=== PATIENT | female | born 1955 | race Caucasian/White ===

== ENCOUNTER 2019-06-17 12:10 | Inpatient (IN) | payer OTHER ==
[~2019-06-17] VITALS: Ht 154.9 cm; Wt 36.7 kg
[~2019-06-17 12:10] MED LIST: ALLEGRA180 MG PO; ATROVENT15 ML; BUDEPRION SR150 MG PO; BUPROPION XL300 MG PO; BUSPIRONE HCL10 MG PO; CALCIUM 600 +1 EA11 PO; CALCIUM 600 +1 EAC5 PO; CLONAZEPAM 1 MG1 M1 PO; COMBIVENT INH; DULERA 200 MCG/13 GM INH; DUONEB 2.5-0.5 M3 ML IH; EVISTA PO; FLONASE 0.05%50 MCG NASAL; KEFLEX500 MG PO; LEVAQUIN 500 M500 M2 PO; LEVAQUIN 500 M500 MG PO; MEDROL4 MG PO; MUCINEX600 MG PO; MULTIVITAMINS PO; MULTIVITAMINS1 EAC7 PO; NORCO 5-325 TA1 EACH PO; NORVASC10 MG PO; PEPCID40 MG PO; PRAVACHOL40 MG PO; PREDNISONE 10 M10 M1; PREDNISONE 10 M10 M1 PO; PREDNISONE 10 M10 MG PO; PRELONE15 MG/5 M1 PO; PROMETHAZINE/C118 ML PO; SINGULAIR 10 MG10 M1; SINGULAIR 10 MG10 M1 PO; SINGULAIR 10 MG10 MG PO; SPIRIVA INH; SYMBICORT160 MCG/4. INH; See comments; XANAX 0.5 MG0.5 M1 PO; XANAX 0.5 MG0.5 MG PO; ZANTAC 150MG T150 M1 PO; ZPAK PO; [UNRECOGNIZED DRUG - OTHER] PO
[2019-06-17 12:11] VITALS: BP 112/73
[2019-06-17 12:39] LABS: HEMATOCRIT 36.7 % (37.0-47.0); HEMOGLOBIN 12.4 gm/dL (12.0-15.0); MCH 29.9 pg (26.0-34.0); MCHC 33.7 g/dL (28.0-37.0); MCV 88.7 fL (80.0-100.0); NUCLEATED RBCS 0 /100WBC; PLATELET COUNT* 379 thou/uL (150-400); RBC 4.14 mil/uL (4.20-5.00); RDW-CV 12.5 % (10.5-14.5); WBC 22.3 thou/uL (4.0-11.0)
[2019-06-17 12:47] LABS: CALCIUM 9.6 mg/dL (8.5-10.1); CREATININE 1.2 mg/dL (0.6-1.3); POTASSIUM 4.3 mmol/L (3.5-5.1)
[2019-06-17 12:48] LABS: APTT 34.4 Seconds (25.0-31.3)
[2019-06-17 12:57] LABS: ALBUMIN 3.2 g/dL (3.4-5.0); TOTAL BILIRUBIN 0.4 mg/dL (<0.1-1.0); TOTAL PROTEIN 7.5 g/dL (6.4-8.2)
[2019-06-17] MEDS ORDERED: PROAIR HFA8.5 GM INH (13:03)
[2019-06-17] MEDS ORDERED: DALIRESP500 MCG PO (13:04)
[2019-06-17] MEDS ORDERED: EVISTA60 MG PO (13:04)
[2019-06-17 13:25] LABS: ABSOLUTE LYMPHOCYTES 0.4 thou/uL (0.8-5.3); ABSOLUTE MONOCYTES 0.2 thou/uL (0.0-1.2); ABSOLUTE NEUTROPHILS 21.6 thou/uL (1.6-8.1); PLATELET ESTIMATE ADEQUATE
[2019-06-17 14:39] VITALS: BP 125/80
[2019-06-17] MEDS ORDERED: CLONAZEPAM 1 MG1 M1 PO (16:02)
[2019-06-17] MEDS ORDERED: CLONAZEPAM2 MG PO (16:03)
[2019-06-17] MEDS ORDERED: ALBUTEROL2.5 MG/31 INH (16:07)
--- NOTE | 2019-06-17 16:11 | EKG ---
[place] [address] ELECTROCARDIOGRAM REPORT Name: SILVIANO COBURN Room: [address] ADM IN M.R.#: [id number] Admission: 06/17/19 Attend Phys: Helene Wiley MD Discharge: Date of : 51 Report #: [id number] THIS REPORT FOR: //name// [facility] ED Test Date: 2019-06-17 Test Time: 12:24:35 Pat Name: SILVIANO COBURN Department: Room: [facility] Gender: F Hooker On: : 1955 Requested By: Gt Vidales Order Number: [id number] MD: Osito Montanez Measurements Intervals [place] Rate: 133 P: 103 RI: 158 QRS: 83 QRSD: 76 T: 26 QT: 282 QTc: 420 Interpretive Statements Sinus tachycardia Consider right atrial enlargement Probable septal infarct, old Artifact in lead(s) I,V4,V5 Compared to ECG 04/26/2013 09:38:27 Myocardial infarct finding now present Sinus rhythm no longer present Electronically Signed On 06-17-2019 16:11:28 EMERGENCY PHYSICIAN by Osito Montanez [email or web address] <ELECTRONICALLY SIGNED> By: Osito Montanez MD, FACC 06/17/19 1611 1224 1224 Osito Montanez MD, [facility] /EPI
[2019-06-17 17:04] VITALS: BP 124/55
--- NOTE | 2019-06-17 17:26 | NUR ---
PT ARRIVED FROM ER AROUND 1500. ASSESSMENT COMPLETED CHARTED. ABLE TO MAKE NEEDS KNOWN. C/O SLIGHT PAIN IN RIBS, GETS WORSE WITH COUGHING. UP WITH ASSIST. RESTING IN BED. IV FLUIDS AND IV ABT RUNNING PER EMAR. FAMILY AT BEDSIDE. WILL CONTINUE TO MONITOR.
[2019-06-17 20:00] VITALS: BP 139/66
[2019-06-18 00:21] VITALS: BP 99/49
[2019-06-18 04:00] VITALS: BP 105/60
[2019-06-18 08:00] VITALS: BP 123/66
[2019-06-18 11:44] VITALS: BP 115/58
--- NOTE | 2019-06-18 12:14 | NUR ---
Nutrition: Pt admitted with COPD exac. H/o COPD, dysphagia, HTN. Consult for poor appetite. Wt: 79#. REgular diet ordered. BG 135, albumin 3.2. Uses O2 at home. BMI 15. Underweight R/T COPD demands AEB BMI 15, COPD DX. Ensure Enlive ordered. Encourae good protein/meal intake. Mild risk at this time.
--- NOTE | 2019-06-18 12:27 | NUR ---
Pt is A&O. Resides at home with her dtr. Independent. Pt states that she keeps a walker in her car for community distances. Pt wears home o2 continuous at 2L and has a trilogy through [employer]. Pt also has an [employer]. No hx of HH or SNF. Goal is home at dc, no needs anticipated, Pt states that her dtr is available to assist if needed. Following
[2019-06-18 12:40] LABS: INFLUENZA A ANTIGEN Negative (Negative); INFLUENZA B ANTIGEN Negative (Negative)
[2019-06-18 17:07] VITALS: BP 113/69
[2019-06-18 17:31] LABS: HEMATOCRIT 26.1 % (37.0-47.0); MCH 29.2 pg (26.0-34.0); MCHC 33.1 g/dL (28.0-37.0); MCV 88.3 fL (80.0-100.0); MPV 8.3 fl. (7.2-11.1); RBC 2.96 mil/uL (4.20-5.00); RDW-CV 12.4 % (10.5-14.5); WBC 17.4 thou/uL (4.0-11.0)
[2019-06-18 17:42] LABS: HEMOGLOBIN 8.6 gm/dL (12.0-15.0)
--- NOTE | 2019-06-18 18:56 | NUR ---
PT VSS, PATIENT SR TO ST ON TELE, A&OX4, NC@3L BASELINE, NPO AT MIDNIGHT EGD 11AM TOMORROW, PATIENT UP WITH ONE AND WALKER, HOURLY ROUNDING PERFORMED, POSSESSIONS AND CALL LIGHT WITHIN REACH. IV INFILTRATED IN LEFT ARM, ICE APPLIED AND ELEVATED
[2019-06-18 22:00] VITALS: BP 110/61
[2019-06-19 00:34] VITALS: BP 121/71
[2019-06-19 04:00] VITALS: BP 111/69
[2019-06-19 05:47] LABS: HEMATOCRIT 25.6 % (37.0-47.0); HEMOGLOBIN 8.5 gm/dL (12.0-15.0); MCHC 33.1 g/dL (28.0-37.0); MCV 87.7 fL (80.0-100.0); MPV 8.2 fl. (7.2-11.1); PLATELET COUNT* 381 thou/uL (150-400); RBC 2.91 mil/uL (4.20-5.00); RDW-CV 12.7 % (10.5-14.5); WBC 14.5 thou/uL (4.0-11.0)
[2019-06-19 06:01] LABS: ALBUMIN 2.4 g/dL (3.4-5.0); CALCIUM 8.6 mg/dL (8.5-10.1); CREATININE 0.7 mg/dL (0.6-1.3); MAGNESIUM 2.1 mg/dL (1.8-2.4); POTASSIUM 3.9 mmol/L (3.5-5.1); TOTAL BILIRUBIN 0.1 mg/dL (<0.1-1.0); TOTAL PROTEIN 5.8 g/dL (6.4-8.2)
[2019-06-19 08:00] VITALS: BP 145/82
[2019-06-19 11:39] VITALS: BP 132/74
[2019-06-19 13:01] LABS: ABSOLUTE LYMPHOCYTES 0.4 thou/uL (0.8-5.3); ABSOLUTE MONOCYTES 0.3 thou/uL (0.0-1.2); ABSOLUTE NEUTROPHILS 13.8 thou/uL (1.6-8.1); BASOPHILS 0.2 %; LYMPHOCYTES 2.5 %; MONOCYTES 2.1 %; POLYS 95.2 %
[2019-06-19 16:24] VITALS: BP 122/60
--- NOTE | 2019-06-19 19:55 | NUR ---
ASSUMED PT CARE AT 0730. ASSESSMENT COMPLETED CHARTED. ABLE TO MAKE NEEDS KNOWN. NO C/O PAIN OR DISCOMFORT. UP WITH SBA WITH WALKER. DIARRHEA NOTED, NOTIFIED DR, NEW ORDERS RECIEVED. RESTING IN BED AT THIS TIME WITH 2L O2 ON. IV ABT. ST ON MONITOR. WILL CONTINUE TO MONITOR.
[2019-06-19 21:00] VITALS: BP 125/71
[2019-06-20] VITALS: BP 96/54
[2019-06-20 04:00] VITALS: BP 100/50
[2019-06-20 08:00] VITALS: BP 122/64
[2019-06-20 12:08] LABS: HEMATOCRIT 25.7 % (37.0-47.0); HEMOGLOBIN 8.6 gm/dL (12.0-15.0); MCH 29.7 pg (26.0-34.0); MCHC 33.4 g/dL (28.0-37.0); MCV 88.8 fL (80.0-100.0); MPV 7.8 fl. (7.2-11.1); NUCLEATED RBCS 0 /100WBC; PLATELET COUNT* 384 thou/uL (150-400); RDW-CV 12.9 % (10.5-14.5); WBC 8.6 thou/uL (4.0-11.0)
[2019-06-20 12:11] LABS: ALBUMIN 2.5 g/dL (3.4-5.0); CALCIUM 8.4 mg/dL (8.5-10.1); CREATININE 0.7 mg/dL (0.6-1.3); TOTAL BILIRUBIN 0.2 mg/dL (<0.1-1.0)
[2019-06-20 12:16] VITALS: BP 148/63
[2019-06-20 12:31] LABS: ABSOLUTE LYMPHOCYTES 0.5 thou/uL (0.8-5.3); ABSOLUTE MONOCYTES 0.1 thou/uL (0.0-1.2); PLATELET ESTIMATE ADEQUATE
[2019-06-20 16:38] VITALS: BP 159/85
[2019-06-20 20:30] VITALS: BP 150/74
[2019-06-21] VITALS: BP 135/58
[2019-06-21 04:00] VITALS: BP 133/66
--- NOTE | 2019-06-21 05:18 | NUR ---
PT SLEPT MOST OF SHIFT. ASSESSMENT DOCUMENTED. MEDS GIVEN PER E-MAR. IV PATENT. TYLENOL GIVEN FOR PAIN WITH RELIEF. ISOLATION MAINTIANED. FALL PRECATIONS IN PLACE. WILL CONTINUE WITH PLAN OF CARE.
[2019-06-21 08:00] VITALS: BP 127/71
[2019-06-21 11:48] VITALS: BP 146/76
[2019-06-21 12:55] LABS: ABSOLUTE LYMPHOCYTES 0.3 thou/uL (0.8-5.3); ABSOLUTE MONOCYTES 0.3 thou/uL (0.0-1.2); ABSOLUTE NEUTROPHILS 10.5 thou/uL (1.6-8.1); BASOPHILS 0.3 %; EOSINOPHILS 0.1 %; HEMATOCRIT 31.6 % (37.0-47.0); HEMOGLOBIN 10.5 gm/dL (12.0-15.0); LYMPHOCYTES 2.8 %; MCH 29.5 pg (26.0-34.0); MCHC 33.1 g/dL (28.0-37.0); MCV 89.1 fL (80.0-100.0); MONOCYTES 2.8 %; NUCLEATED RBCS 0 /100WBC; RBC 3.54 mil/uL (4.20-5.00); RDW-CV 13.2 % (10.5-14.5); WBC 11.2 thou/uL (4.0-11.0)
[2019-06-21 12:58] LABS: PLATELET COUNT* 529 thou/uL (150-400)
[2019-06-21 13:00] LABS: CALCIUM 9.1 mg/dL (8.5-10.1); CREATININE 0.9 mg/dL (0.6-1.3); POTASSIUM 4.2 mmol/L (3.5-5.1)
[2019-06-21 15:55] VITALS: BP 143/73
--- NOTE | 2019-06-21 16:20 | CON ---
[address] [address] CONSULTATION Name: SILVIANO COBURN Room: [address] IN ..#: [id number] Admission: 06/17/19 Attend Phys: Helene Wiley MD Discharge: Date of : 51 Report #: [id number] THIS REPORT FOR: //name// CC: Osito Wiley DATE OF SERVICE: 06/18/2019 HISTORY OF PRESENT ILLNESS: This is a pleasant 64-year-old female with past medical history significant for severe COPD, who presented to the hospital initially for shortness of breath. Over the course of her hospitalization, she was diagnosed and treated for both COPD exacerbation and pneumonia. Incidentally, the patient also reports increasing dysphagia over the last several months. The patient reports dysphagia is predominantly present to solids and not to liquids. She denies any odynophagia. Denies having EGD in the past. The patient reports intermittent reflux symptoms and heartburn that are present 1-2 times per week. She denies nausea, vomiting, weight loss or other alarming symptoms. PAST MEDICAL HISTORY: Significant for COPD, anxiety, hypertension. PAST SURGICAL HISTORY: Nonsignificant. SOCIAL HISTORY: The patient has a history of smoking, but quit. Denies alcohol or recreational drug use. FAMILY HISTORY: No family history of esophageal, gastric, or colonic malignancy. REVIEW OF SYSTEMS: Negative except for what was mentioned in the HPI. PHYSICAL EXAMINATION: VITAL SIGNS: Temperature 36.8, pulse rate 103, respirations 20, blood pressure 110/61. GENERAL: The patient is alert, awake, oriented x 3. HEENT: Pupils are equal, round, reactive to light and accommodation. Mucous membranes are moist. There is no congestion. LUNGS: On auscultation, show bilateral decreased breath sounds. ABDOMEN: Soft. There is no distention, guarding or rigidity. EXTREMITIES: Warm, well perfused. There is no edema. SKIN: Warm and dry. ASSESSMENT AND PLAN: Pleasant 64-year-old female with history of severe chronic obstructive pulmonary disease, presenting with chronic obstructive pulmonary disease exacerbation and pneumonia. The patient incidentally noted to have dysphagia predominantly to solids. I would [place] [address] CONSULTATION Name: SILVIANO COBURN Room: [address] IN [facility]#: [id number] Admission: 06/17/19 Attend Phys: Helene Wiley MD Discharge: Date of : 51 Report #: [id number] evaluation. I offered her inpatient versus outpatient EGD and the patient prefers to have it done on the inpatient side. We will set her up for an EGD tomorrow and make further recommendations based on the results of the test. <ELECTRONICALLY SIGNED> By: Tom Krishnan MD 06/21/19 1620 1107 MD nanci Moreno
--- NOTE | 2019-06-21 18:17 | NUR ---
PT A&O x4. VSS. O2 SUPPORT OF NC 3L/MIN. MULTIPLE LOOSE BMs TODAY. CONTACT PRECAUTIONS MAINTAINED. GETS UP AT ST[facility] ASSIST. ENCOURAGED DIET. PROGRESSING TOWARDS GOALS.
[2019-06-21 20:15] VITALS: BP 152/87
[2019-06-22] VITALS: BP 139/81
--- NOTE | 2019-06-22 04:40 | NUR ---
PT SLEPT ON AND OFF THIS SHIFT. ASSESSMENT DOCUMENTED. MEDS GIVEN PER E-AUG. IV PATENT. O2 WORN THIS SHIFT. PT REQUESTED BSC SHE IS UNABLE TO MAKE IT TO THE BATHROOM AT THIS TIME. PT HAD MULTIPLE STOOLS THIS SHIFT. FALL PRECAUTIONS IN PLACE. WILL CONTINUE WITH PLAN OF CARE.
--- NOTE | 2019-06-22 07:20 | NUR ---
CHANGE OF SHIFT, BEDDSIDE REPORT GIVEN PATIENT SEEN AT BEDSIDE, IN BED RESTING ASSUMED PATIENT CARE
[2019-06-22 08:00] VITALS: BP 152/84
[2019-06-22 10:57] LABS: ABSOLUTE LYMPHOCYTES 0.3 thou/uL (0.8-5.3); ABSOLUTE MONOCYTES 0.6 thou/uL (0.0-1.2); ABSOLUTE NEUTROPHILS 13.3 thou/uL (1.6-8.1); BASOPHILS 0.3 %; HEMATOCRIT 32.7 % (37.0-47.0); HEMOGLOBIN 10.8 gm/dL (12.0-15.0); LYMPHOCYTES 2.4 %; MCH 29.3 pg (26.0-34.0); MCHC 33.1 g/dL (28.0-37.0); MCV 88.6 fL (80.0-100.0); MPV 7.3 fl. (7.2-11.1); NUCLEATED RBCS 0 /100WBC; PLATELET COUNT* 589 thou/uL (150-400); POLYS 93.3 %; RBC 3.69 mil/uL (4.20-5.00); RDW-CV 12.6 % (10.5-14.5); WBC 14.2 thou/uL (4.0-11.0)
[2019-06-22 11:11] LABS: ALBUMIN 3.1 g/dL (3.4-5.0); CALCIUM 8.8 mg/dL (8.5-10.1); CREATININE 0.9 mg/dL (0.6-1.3); PHOSPHORUS* 2.4 mg/dL (2.5-4.9); POTASSIUM 3.1 mmol/L (3.5-5.1)
[2019-06-22 14:00] VITALS: BP 148/80
[2019-06-22 22:09] VITALS: BP 168/82
[2019-06-23 04:34] LABS: HEMATOCRIT 31.4 % (37.0-47.0); HEMOGLOBIN 10.4 gm/dL (12.0-15.0); MCH 29.1 pg (26.0-34.0); MCHC 33.2 g/dL (28.0-37.0); MCV 87.7 fL (80.0-100.0); MPV 6.9 fl. (7.2-11.1); NUCLEATED RBCS 0 /100WBC; PLATELET COUNT* 583 thou/uL (150-400); RBC 3.58 mil/uL (4.20-5.00); RDW-CV 12.9 % (10.5-14.5); WBC 15.4 thou/uL (4.0-11.0)
--- NOTE | 2019-06-23 04:52 | NUR ---
PT ARRIVED FROM TELEMETRY AT SHIFT CHANGE. PT ALERT AND ORIENTED X4, POLITE AND COOPERATIVE WITH CARES. PT ON 3L 02 PER NC, HOME REGIMINE. SALINE LOCK IN LEFT ARM. BEDSIDE COMMODE PLACED AT BEDSIDE PER PT REQUEST. PT HAD SEVERAL LOOSE STOOLS. C DIFF PRECAUTIONS IN PLACE. USES CALL LIGHT APPROPRIATELY. CALL LIGHT IN REACH. HOURLY ROUNDING IN PROGRESS, WILL CONTINUE TO MONITOR.
[2019-06-23 05:06] LABS: ALBUMIN 2.9 g/dL (3.4-5.0); CALCIUM 8.5 mg/dL (8.5-10.1); CREATININE 0.7 mg/dL (0.6-1.3)
[2019-06-23 05:22] LABS: POTASSIUM 2.9 mmol/L (3.5-5.1)
[2019-06-23 07:30] LABS: ABSOLUTE LYMPHOCYTES 0.8 thou/uL (0.8-5.3); ABSOLUTE MONOCYTES 0.8 thou/uL (0.0-1.2)
[2019-06-23 07:31] LABS: MYELOCYTES 1 %; PLATELET ESTIMATE INCREASED
[2019-06-23 07:32] LABS: HYPOCHROMASIA 2+; TOXIC GRANULATION 3+
--- NOTE | 2019-06-23 07:46 | CON ---
[address] [address] CONSULTATION Name: SILVIANO OCBURN Room: [address] IN M.R.#: [id number] Admission: 06/17/19 Attend Phys: Helene Wiley MD Discharge: Date of : 51 Report #: [id number] THIS REPORT FOR: //name// CC: Osito Wiley DATE OF SERVICE: 06/22/2019 INFECTIOUS DISEASE CONSULTATION ATTENDING PHYSICIAN: Dr. Wiley. REASON FOR EVALUATION: C. diff colitis with associated O2 requiring COPD, complicated by left lower lobe pneumonia. Recommendation for antibiotic therapeutic approach. HISTORY OF PRESENT ILLNESS: Chart reviewed, patient examined. A 64-year-old woman with longstanding COPD. She has been O2 dependent dating back 7-8 years, who although disease burden has not been particularly ill from an infectious standpoint. Last respiratory tract infection, perhaps a few years ago. She presented to the Emergency Room with complaints of progressive weakness 2-3 days prior, had a productive cough, nausea, emesis and decreased appetite and is complaining of some right-sided rib pain as well which she attributes to coughing. Evaluation suggested question of left lower lung infiltrate, was also evaluated and was found to have a positive C. diff PCR. She had been on combination therapy including oral vancomycin as well as fluconazole, azithromycin, ceftriaxone; later two have been discontinued thus far. She is generally lucid. She describes a band-like pain across her anterior chest exacerbated by coughing and deep breathing. She has not had temperature elevations. Appetite has been somewhat marginal. She notes she weighs less than 80 pounds, but that has been longstanding. She does take supplemental Ensure. She is not encephalopathic. ALLERGIES: FOSAMAX, ACTONEL, MOXIFLOXACIN WELL. CURRENT MEDICATIONS: Include fluconazole, multivitamin, raloxifene, roflumilast clonazepam, bupropion, methylprednisolone, guaifenesin, enoxaparin, famotidine, montelukast, arformoterol, budesonide, albuterol, ipratropium inhaler, oral vancomycin. PAST MEDICAL HISTORY: COPD, O2 requiring; anxiety; hypertension; depression. SOCIAL HISTORY: Former smoker. No ethanol. No illicit drug use. FAMILY HISTORY: [place] [address] CONSULTATION Name: IRISHSILVIANO Margarito Room: [address]#: [id number] Admission: 06/17/19 Attend Phys: Helene Wiley MD Discharge: Date of : 51 Report #: [id number] REVIEW OF SYSTEMS: Otherwise, 10-point review of systems unremarkable with the exception of the above. PHYSICAL EXAMINATION: GENERAL: She is somewhat chronically ill appearing. She is undernourished. She is lucid, rqgo-nm-benjuvvt distress. VITAL SIGNS: Temperature 98.3, pulse 90, respirations 20, blood pressure 152/84. SKIN: Warm, dry. HEENT: Normocephalic. Extraocular muscles intact. NECK: Supple. She has nasal cannula oxygen in place. LUNGS: Few scattered crackles. Nothing for consolidation. HEART: Regular. Borderline tachycardic. I do not appreciate a murmur. ABDOMEN: Soft, nontender, nondistended. EXTREMITIES: No cyanosis. GENITOURINARY: Deferred. RECTAL: Deferred. LABORATORY DATA: Most recent electrolytes; sodium 146, potassium 4.2, chloride 102, bicarbonate is 35, anion gap of 9, BUN and creatinine 17 and 0.9, estimated GFR of 63. CBC: White count of 11.2, H and H 10.5 and 31.6, platelets of 529. She does have lymphocytopenia. C. diff by PCR was positive. Prealbumin of 21.7. Blood cultures sterile thus far. ASSESSMENT: Clostridium difficile colitis. Continue oral vancomycin. At this point, certainly have to work at the margins, has got several factors that are suggestive of worsening prognosis from the standpoint including malnourishment. We will likely have an extended taper dose which I could follow as an outpatient. Secondly, respiratory tract signs and symptoms including chest wall pain has a pleuritic component. It is reasonable to do imaging of the chest to exclude possibility of some fluid, etc. At this point, she is not on additional antibacterial antibiotics and not having toxicity. We will hold those for now, but maybe we will need to restart those. Discussed with the patient. <ELECTRONICALLY SIGNED> By: Thierno Ralph MD 06/23/19 0746 1029 0028Thierno Ralph MD /nt
[2019-06-23 08:00] VITALS: BP 154/90
[2019-06-23 17:38] VITALS: BP 149/76
--- NOTE | 2019-06-23 17:47 | NUR ---
AM ASSESSMENT AND VITAL SIGNS COMPLETED DOCUMENTED. PT CONTINUES TO HAVE LIQUID STOOLS BUT LESS FREQUENTLY. TRAMADOL GIVEN X 1 FOR C/O RIB PAIN SECONDARY TO COUGHING. POTASSIUM REPLACED PER PROTOCOL AND WAS 4.7 AFTER REPLACEMENT. ISOLATION PRECAUTIONS CONTINUE.
[2019-06-23 19:50] VITALS: BP 140/82
[2019-06-24 04:02] LABS: ABSOLUTE LYMPHOCYTES 0.5 thou/uL (0.8-5.3); ABSOLUTE MONOCYTES 0.6 thou/uL (0.0-1.2); BASOPHILS 0.1 %; HEMOGLOBIN 10.6 gm/dL (12.0-15.0); LYMPHOCYTES 2.6 %; MCH 29.2 pg (26.0-34.0); MCV 88.4 fL (80.0-100.0); MONOCYTES 3.2 %; MPV 7.1 fl. (7.2-11.1); NUCLEATED RBCS 0 /100WBC; PLATELET COUNT* 578 thou/uL (150-400); POLYS 94.1 %; RBC 3.63 mil/uL (4.20-5.00); RDW-CV 12.8 % (10.5-14.5); WBC 19.2 thou/uL (4.0-11.0)
[2019-06-24 04:15] LABS: ALBUMIN 2.9 g/dL (3.4-5.0); CALCIUM 8.7 mg/dL (8.5-10.1); CREATININE 0.7 mg/dL (0.6-1.3); PHOSPHORUS* 3.5 mg/dL (2.5-4.9); POTASSIUM 4.3 mmol/L (3.5-5.1)
--- NOTE | 2019-06-24 06:30 | NUR ---
ASSUMED CARE @ 193-06/23-FRI.AWAKE IN BED W/ HOB UP & O2 ON @ 3L/NC.WATCHING TV.ISOLATION OBSERVED.CALLS NURSE TO EMPTY BSC.HAD BM'S X3 DURING NIGHT.SALINE LOCK LEAKING WHEN FLUSHED @ 0350 & REMOVED.WILL NOT USE TRILOGY WHILE HAVING BM'S.PER PATIENT-TOO MUCH WORK TO PUT IT OFF & ON WHEN IN A HURRY TO USE BSC. SLEEPING SINCE 2199.
[2019-06-24 08:00] VITALS: BP 139/61
[2019-06-24 16:00] VITALS: BP 147/72
--- NOTE | 2019-06-24 18:56 | NUR ---
AM ASSESSMENT AND VITAL SIGNS COMPLETED DOCUMENTED. PT STATES SHE IS FEELING BETTER. FREQUENCY AND QUANTITY OF STOOLS CONTINUE TO DECREASE AND THERE HAVE BEEN TIMES TODAY THAT SHE URINATED WITHOUT HAVING A BM. PT HAS A GOOD APPETITE AND TAKES PO FLUIDS WELL. ISOLATION PRECAUTIONS CONTINUE.
[2019-06-24 20:10] VITALS: BP 150/65
[2019-06-25 04:34] LABS: ABSOLUTE BASOPHILS 0.1 thou/uL (0.0-0.2); ABSOLUTE LYMPHOCYTES 0.5 thou/uL (0.8-5.3); ABSOLUTE MONOCYTES 0.5 thou/uL (0.0-1.2); ABSOLUTE NEUTROPHILS 19.7 thou/uL (1.6-8.1); BASOPHILS 0.3 %; HEMATOCRIT 34.1 % (37.0-47.0); HEMOGLOBIN 11.3 gm/dL (12.0-15.0); LYMPHOCYTES 2.5 %; MCH 29.5 pg (26.0-34.0); MCHC 33.1 g/dL (28.0-37.0); MCV 89.1 fL (80.0-100.0); MONOCYTES 2.6 %; MPV 7.2 fl. (7.2-11.1); NUCLEATED RBCS 0 /100WBC; POLYS 94.6 %; RBC 3.82 mil/uL (4.20-5.00); RDW-CV 13.2 % (10.5-14.5); WBC 20.9 thou/uL (4.0-11.0)
[2019-06-25 04:43] LABS: CALCIUM 8.6 mg/dL (8.5-10.1); CREATININE 0.8 mg/dL (0.6-1.3)
[2019-06-25 04:45] LABS: PLATELET COUNT* 707 thou/uL (150-400)
--- NOTE | 2019-06-25 05:47 | NUR ---
PT ALERT AND ORIENTED. VSS ON 3L. SOA WITH ACTIVITY. UP TO BSC. DIARHHEA. PT SLEPT MOST OF SHIFT. MEDS GIVEN PER EMAR. RT ORDERED. CDIFF ISOLATION IN PLACE. NO IV ACCESS AT THIS TIME. WBC AND PLT COUNT STILL TRENDING HIGH. CALL LIGHT WITHIN REACH. HOURLY ROUNDINGS MADE. WILL CONTINUE TO MONITOR.
[2019-06-25 08:25] VITALS: BP 140/85
[2019-06-25 15:30] VITALS: BP 141/74
--- NOTE | 2019-06-25 15:59 | NUR ---
SW met with pt to discuss dc planning. Pt does not want to go to SNF and says that she will dc home with her dtr who provides care. Pt open to HH and SW discussed options; pt preference for [facility]; dc cyber intel planner to fax initial referral, if pt dc over the weekend, orders to be faxed to [facility] fax number [phone].
--- NOTE | 2019-06-25 16:53 | NUR ---
FAXED REFERRAL TO [facility] . CONFIRMED WITH KEON/MARLO THAT SHE RECEIVED REFERRAL BUT WILL NEED PHYSICIANS ORDERS.
--- NOTE | 2019-06-25 18:25 | NUR ---
PT A&OX4 VSS. PT ON ISOLATION R/T C-DIFF. PT ON 3L O2 BY NASAL CANNULA. PT UP AD EDMOND, USES BEDSIDE COMMODE D/T SOB. PT ON ORAL VANC. PT HAS LOZENGES FOR THRUSH OF THROAT. PT HAD XRAY OF ABD THIS AFTERNOON. PT CONTINUES TO TAKE BREATHING TX SCHEDULED. PT CURRENTLY HAS NO IV ACCESS, MEDS ADMINISTERED PO, TOLERATES WELL. PT RESTING IN ROOM WITHG CALL LIGHT IN REACH. WILL CONTINUE TO MONITOR.
[2019-06-25 20:10] VITALS: BP 145/75
[2019-06-26 05:06] LABS: HEMATOCRIT 32.6 % (37.0-47.0); HEMOGLOBIN 11.1 gm/dL (12.0-15.0); MCHC 33.9 g/dL (28.0-37.0); MCV 88.3 fL (80.0-100.0); NUCLEATED RBCS 0 /100WBC; PLATELET COUNT* 641 thou/uL (150-400); RBC 3.69 mil/uL (4.20-5.00); RDW-CV 13.3 % (10.5-14.5)
[2019-06-26 05:17] LABS: ANION GAP < 0 mmol/L (7-16); BUN 29 mg/dL (7-18); CALCIUM 8.8 mg/dL (8.5-10.1); CHLORIDE 101 mmol/L (98-107); CO2 39 mmol/L (21-32); CREATININE 0.9 mg/dL (0.6-1.3); GLUCOSE 64 mg/dL (70-99); POTASSIUM 4.9 mmol/L (3.5-5.1); SODIUM 139 mmol/L (136-145)
--- NOTE | 2019-06-26 05:44 | NUR ---
PT ALERT AND ORIENTED. VSS ON 3L NC. MEDS GIVEN PER EMAR. PT SLEPT WELL THIS SHIFT. PT WAS CONCERNED AND TEARY BEGINNING OF SHIFT REGARDING HAVING CDIFF AND ON BEING ON ISOLATION. PT IS WORRIED ABOUT INFECTING HER FAMILY WITH CDIFF. PT WAS ALSO CONCERNED WITH THE POSSIBILITY OF HAVING TO DO FECAL TRANSPLANT. EDUCATION PROVIDED ON CDIFF AND MODE OF TRANSMISSION. PT EDUCATED ON IMPORTANCE OF WASHING HANDS WITH SOAP AND WATER. WRITTEN MATERIAL ON CDIFF ALSO PROVIDED. PT HAD LOOSE BMS THIS SHIFT VIA BSC. BLOOD GLUCOSE THIS AM 64 VIA LAB. TO FOLLOW HYPOGLYCEMIA PROTOCOL. CALL LIGHT WITHIN REACH. HOURLY ROUNDINGS MADE. WILL CONTINUE TO MONITOR.
[2019-06-26 06:48] LABS: ABSOLUTE BASOPHILS 0.2 thou/uL (0.0-0.2); ABSOLUTE LYMPHOCYTES 3.3 thou/uL (0.8-5.3); ABSOLUTE MONOCYTES 1.3 thou/uL (0.0-1.2); ABSOLUTE NEUTROPHILS 17.2 thou/uL (1.6-8.1); HYPOCHROMASIA 2+; METAMYELOCYTES 1 %; MYELOCYTES 1 %; PLATELET ESTIMATE INCREASED
--- NOTE | 2019-06-26 07:31 | NUR ---
PT HAD 4 OUNCE OF APPLE JUICE. BG RECHECKED 30 MINS LATER AND IS 141 AT THIS TIME. PT ADMITTED TO RECEIVING INSULIN ON ONE HOSPITALIZATION IN THE PAST. PT ADMITTED TO MOTHER BEING DIABETIC. PT DOES NOT HAVE [facility] LAB THIS HOSPITAL STAY. WILL CONTINUE TO MONITOR.
[2019-06-26 09:00] VITALS: BP 157/67
[2019-06-26 16:00] VITALS: BP 147/66
[2019-06-26 20:00] VITALS: BP 119/73
--- NOTE | 2019-06-26 20:02 | NUR ---
PATIENT AWAKE IN BED. PATIENT AMBULATING IN ROOM THROUGHOUT SHIFT. ALL SAFETY MEASURES MAINTIANED. PATIENTS DAUGHTER CALLED THIS MORNING FOR UPDATE. SPOKE WITH DANY. PATIENT DENIES FURTHER NEEDS OR QUESTIONS AT THIS TIME.
--- NOTE | 2019-06-27 05:17 | NUR ---
PT SLEPT WELL OVERNIGHT. UP AD EDMOND TO BSC TO VOID AND HAVE AT LEAST 2 SOFT FORMING BROWN BMS. NO LABS DRAWN THIS MORNING. RECEIVING PO VANC SCHEDULED. NO IV ACCESS. O2 3L NC. RT TX GIVEN NEEDED. DNR. ABLE TO USE CALL LITE AND MAKE NEEDS KNOWN. TAKING PILLS WHOLE WITH WATER WITHOUT DIFFICULTY. ABLE TO USE CALL LITE AND MAKE NEEDS KNOWN.
[2019-06-27 08:38] VITALS: BP 150/80
[2019-06-27 11:48] LABS: ABSOLUTE EOSINOPHILS 0.1 thou/uL (0.0-0.7); ABSOLUTE LYMPHOCYTES 0.9 thou/uL (0.8-5.3); ABSOLUTE MONOCYTES 0.7 thou/uL (0.0-1.2); ABSOLUTE NEUTROPHILS 19.5 thou/uL (1.6-8.1); BASOPHILS 0.2 %; EOSINOPHILS 0.3 %; HEMATOCRIT 32.3 % (37.0-47.0); HEMOGLOBIN 10.8 gm/dL (12.0-15.0); MCH 29.5 pg (26.0-34.0); MCHC 33.4 g/dL (28.0-37.0); MCV 88.4 fL (80.0-100.0); MONOCYTES 3.2 %; MPV 7.7 fl. (7.2-11.1); NUCLEATED RBCS 0 /100WBC; PLATELET COUNT* 615 thou/uL (150-400); POLYS 92.3 %; RBC 3.66 mil/uL (4.20-5.00); RDW-CV 13.2 % (10.5-14.5); WBC 21.2 thou/uL (4.0-11.0)
[2019-06-27 12:03] LABS: ALBUMIN 3.1 g/dL (3.4-5.0); CALCIUM 8.3 mg/dL (8.5-10.1); CREATININE 0.9 mg/dL (0.6-1.3); POTASSIUM 4.1 mmol/L (3.5-5.1); TOTAL BILIRUBIN 0.4 mg/dL (<0.1-1.0); TOTAL PROTEIN 5.8 g/dL (6.4-8.2)
[2019-06-27 16:00] VITALS: BP 135/77
--- NOTE | 2019-06-27 19:58 | NUR ---
PATIENT AWAKE IN BED. PATIENT AMBULATING IN ROOM THIS SHIFT. ALL SAFETY MEASURES MAINTAINED. PATIENT DENIES FURTHER NEEDS AT THIS TIME.
[2019-06-27 20:05] VITALS: BP 144/80
--- NOTE | 2019-06-28 05:26 | NUR ---
PT SLEPT WELL OVERNIGHT. UP INDEP TO BSC TO VOID OVERNIGHT, ONE SMALL SOFT FORMED BROWN BM SEEN BY STAFF THIS SHIFT. O2 3L PER HOME O2. NO IV ACCESS. TAKING PILLS ONE AT A TIME WITH WATER. PT HOPEFUL FOR DISCHARGE HOME TODAY. DNR. NO LABS THIS MORNING. ABLE TO USE CALL LITE AND MAKE NEEDS KNOWN.
[2019-06-28 07:45] VITALS: BP 115/73
[2019-06-28 14:09] LABS: HEMATOCRIT 32.8 % (37.0-47.0); HEMOGLOBIN 10.9 gm/dL (12.0-15.0); MCH 29.2 pg (26.0-34.0); MCHC 33.2 g/dL (28.0-37.0); MCV 87.8 fL (80.0-100.0); MPV 7.3 fl. (7.2-11.1); NUCLEATED RBCS 0 /100WBC; PLATELET COUNT* 655 thou/uL (150-400); RBC 3.74 mil/uL (4.20-5.00); RDW-CV 13.5 % (10.5-14.5); WBC 19.8 thou/uL (4.0-11.0)
[2019-06-28 14:17] LABS: CALCIUM 8.7 mg/dL (8.5-10.1); CREATININE 0.9 mg/dL (0.6-1.3); POTASSIUM 4.6 mmol/L (3.5-5.1)
[2019-06-28 14:31] LABS: ABSOLUTE LYMPHOCYTES 1.6 thou/uL (0.8-5.3); ABSOLUTE MONOCYTES 0.4 thou/uL (0.0-1.2); ABSOLUTE NEUTROPHILS 17.8 thou/uL (1.6-8.1); ATYPICAL LYMPHS 6 %; PLATELET ESTIMATE INCREASED
[2019-06-28 16:15] VITALS: BP 155/72
--- NOTE | 2019-06-28 16:50 | NUR ---
PT A&OX4 VSS. PT REMAINS ON CONTACT ISOLATION R/T DX C-DIFF. PT REPORTS LESS FREQUENT BM AND SOFT FORMED OPPOSED TO LIQUID STOOL TODAY. PT CONTINUES PO VANC AND MEDICATIONS. NO IV ACCESS, IT IS NOT NEEDED AT THIS TIME FOR PT CARE. PT ON 3L O2 BY NASAL CANNULA. PT ON [facility] SOFT/CHOPPED MEAT DIET D/T DENTITION. PT RESTS IN ROOM WITH CALL LIGHT IN REACH. PT UP AD EDMOND TO BEDSIDE COMMODE SHE BECOMES SOA W/EXERTION. WILL CONTINUE TO MONITOR.
--- NOTE | 2019-06-28 17:33 | NUR ---
SW discussed dc planning with Dr Eugene dc pending ID clearance. Plan continues to be for home with dtr as pt is refusing SNF placement; to home with HH, orders to [facility] at time of dc. SW to continue to follow to assist with finalizing safe dc plan.
--- NOTE | 2019-06-28 21:50 | NUR ---
AWAKENED FOR HS REASSESSMENT AND MEDICATION PASS. DENIES DISCOMFORT. TOOK MEDICATIONS ONE AT A TIME WITH WATER. TRANSFERS TO BEDSIDE COMMODE INDEPENDENTLY. 02 NC AT 3 LITERS.
[2019-06-29] VITALS: BP 156/89
[2019-06-29 04:57] LABS: ABSOLUTE EOSINOPHILS 0.2 thou/uL (0.0-0.7); ABSOLUTE LYMPHOCYTES 3.9 thou/uL (0.8-5.3); ABSOLUTE MONOCYTES 1.9 thou/uL (0.0-1.2); ABSOLUTE NEUTROPHILS 12.9 thou/uL (1.6-8.1); BASOPHILS 0.2 %; EOSINOPHILS 0.8 %; HEMATOCRIT 32.6 % (37.0-47.0); HEMOGLOBIN 10.8 gm/dL (12.0-15.0); LYMPHOCYTES 20.5 %; MCH 29.4 pg (26.0-34.0); MCHC 33.2 g/dL (28.0-37.0); MCV 88.6 fL (80.0-100.0); MONOCYTES 9.8 %; MPV 7.4 fl. (7.2-11.1); NUCLEATED RBCS 0 /100WBC; PLATELET COUNT* 653 thou/uL (150-400); POLYS 68.7 %; RBC 3.67 mil/uL (4.20-5.00); RDW-CV 13.6 % (10.5-14.5); WBC 18.8 thou/uL (4.0-11.0)
--- NOTE | 2019-06-29 05:05 | NUR ---
RESTED QUIETLY. HOURLY ROUNDING IN PROGRESS. RECEIVES SCHEDULED BREATHING TREATMENTS. 02 NC AT 3 LITERS.
[2019-06-29 07:35] VITALS: BP 146/72
[2019-06-29 15:30] VITALS: BP 140/76
--- NOTE | 2019-06-29 17:08 | NUR ---
PT A&OX4 VSS. PT UP AD EDMOND TO BEDSIDE COMMODE. PT STOOL REPORTED TO BE MORE FORMED AND SOFT OPPOSED TO WATERY. PT ON 3L O2 BY NASAL CANNULA. PT HAS NO IV ACCESS, MEDICATIONS ADMINISTERED PO. PT HAD EPISODE THIS AM C/O "PILL STUCK" IN HER THROAT. DR CHOI NOTIFIED. PHYSICIAN RECOMMENDS CRUSHING MEDICATIONS IF NEEDED. PT STATES SHE IS READY TO GO HOME. PT REMAINS ON [facility] SOFT/CHOPPED MEAT R/T DENTITION. PT REFUSED PT THIS SHIFT, DR CHOI PRESENT AT BEDSIDE. PLAN IS TO DC TOMORROW TO HOME WITH DGTR AND HOME HEALTH. PT RESTS IN ROOM WITH CALL LIGHT IN REACH. PT HAD NO ISSUE SWALLOWING DILTIAZEM THIS AFTERNOON. WILL CONTINUE TO MONITOR.
[2019-06-29 20:05] VITALS: BP 132/49
--- NOTE | 2019-06-30 02:43 | NUR ---
ASSESSMENT: PT REMAIN ALERT AND ORIENT TIMES FOUR. UP AD EDMOND TO BSC WITH STEADY GAIT. DENIES PAIN AND SOB WITH EXERTION. TOLERATING TAKING PILLS CRUSHED IN APPLE SAUCE. C/O SORE THROAT, LOZENGESGIVEN WITH GOOD RESULTS. STOOLS SOFT, SEMI-LIQUID. POSSIBLE DC TO HOME WITH HH. VSS, STABLE, SLOW PROGRESS TOWARDS DC GOALS, WILL CONTINUE TO MONITOR.
[2019-06-30 05:23] LABS: ABSOLUTE EOSINOPHILS 0.2 thou/uL (0.0-0.7); ABSOLUTE LYMPHOCYTES 3.1 thou/uL (0.8-5.3); ABSOLUTE MONOCYTES 1.9 thou/uL (0.0-1.2); ABSOLUTE NEUTROPHILS 10.3 thou/uL (1.6-8.1); BASOPHILS 0.3 %; HEMATOCRIT 33.1 % (37.0-47.0); LYMPHOCYTES 20.1 %; MCH 29.5 pg (26.0-34.0); MCHC 33.1 g/dL (28.0-37.0); MCV 89.1 fL (80.0-100.0); MONOCYTES 12.1 %; MPV 7.7 fl. (7.2-11.1); NUCLEATED RBCS 0 /100WBC; PLATELET COUNT* 656 thou/uL (150-400); POLYS 66.5 %; RBC 3.71 mil/uL (4.20-5.00); RDW-CV 13.8 % (10.5-14.5); WBC 15.5 thou/uL (4.0-11.0)
[2019-06-30 05:47] LABS: ALBUMIN 3.1 g/dL (3.4-5.0); CALCIUM 8.5 mg/dL (8.5-10.1); CREATININE 0.8 mg/dL (0.6-1.3); POTASSIUM 4.1 mmol/L (3.5-5.1); TOTAL BILIRUBIN 0.3 mg/dL (<0.1-1.0); TOTAL PROTEIN 5.9 g/dL (6.4-8.2)
[2019-06-30 08:57] VITALS: BP 122/55
[2019-06-30 09:03] VITALS: BP 122/55
[2019-06-30] MEDS ORDERED: FIRVANQ50 MG/1 ML PO (09:30)
[2019-06-30] MEDS ORDERED: BROVANA15 MCG/2 M INH (09:30)
[2019-06-30] MEDS ORDERED: MUCINEX600 MG PO (09:30)
[2019-06-30] MEDS ORDERED: DIFLUCAN200 MG PO (09:30)
[2019-06-30] MEDS ORDERED: BENZONATATE100 MG PO (09:30)
[2019-06-30] MEDS ORDERED: PULMICORT0.5 MG/2 M INH (09:30)
[2019-06-30] MEDS ORDERED: ACIDOPHILUS1 EAC4 PO (09:30)
[2019-06-30] MEDS ORDERED: PREDNISONE 10 M10 MG PO (09:33)
[2019-06-30] MEDS ORDERED: DILTIAZEM ER180 M2 PO (09:33)
[2019-06-30] MEDS ORDERED: TRAMADOL 50 MG50 MG PO (09:33)
--- NOTE | 2019-06-30 12:47 | NUR ---
FAXED DC ORDERS AND SUMMARY TO [facility]. CONFIRMED WITH KEON/MARLO THAT PATIENT DC TODAY. [facility] [phone].
[2019-06-30 13:07] VITALS: BP 146/63
[2019-06-30 13:19] VITALS: BP 146/63
--- NOTE | 2019-06-30 17:00 | NUR ---
NOTIFIED THAT PTS VANCOMYCIN PRESCRIPTION NEEDED PRIOR [employer] THROUGH INSURANCE. CALLED AND SPOKE WITH [facility] HELP DESK. GAVE HIM INFORMATION AND ANSWERED HIS QUESTIONS. HE SAID AN URGENT REQUEST WILL STILL TAKE 24 HRS. FOR PA. NOTIFIED . HE QUESTIONED IF OUR PHARMACY COULD DISPENSE ENOUGH DOSES FOR HER TO TAKE AT HOME UNTIL PA DONE. CM SPOKE WITH WIM/PHARMACIST. HE SAID [facility] DOES NOT HAVE A LICENSE TO LABEL. COULD ORDER IT THROUGH [facility] OUT[facility].PHARM[facility]Y BUT WOULD NOT BE AVAILABLE UNTIL TOMORROW. [facility] HAS A CONTRACT WITH [facility] [facility] IN [place]. CALLED IN PRESCRIPTION FOR VANCOMYCIN 250MG/ONE ML/TAKE 250MG QID X 4 DOSES /SUBSTITUTION PERMITTED,PER . PHARMACY HAS OUR PLAN ID # AND GROUP # ON FILE. OK'[D AMOUNT WITH [employer]. NOTIFIED AND [employer]. PT.CAN DISCHARGE TONIGHT. 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 AND CM WILL CALL HER TOMORROW WHEN PA REPORTED TO THEM.
[2019-06-30 17:47] VITALS: BP 146/63
--- NOTE | 2019-07-02 12:20 | NUR ---
LATE ENTRY FOR 07/01 AT 1300-CALLED [facility] IN [employer] [phone]. SPOKE WITH STAFF TO SEE IF ORAL VANC WAS PRIOR AUTH'D . SHE SAID IT WAS PA'D AND PT.PICKED UP FOR $99.
== END 2019-06-30 18:48 | disposition home health service (06) | DRG 871 ==
LOC: M.ERS 12:10 → M.TBA-ER 13:37 → M.2W 13:37 → M.TBA-ER 13:47 → M.2W 14:52 → M.3W 06-22 20:49
PROVIDERS: Emergency Medicine; Internal Medicine; Internal Medicine Gastroenterology; ADMIT Internal Medicine
PROC: 5A09357 Assistance with Respiratory Ventilation, Less than 24 Consecutive Hours, Continuous Positive Airway Pressure (ICD-10-PCS; principal; 2019-06-17)
PROC: 5A09357 Assistance with Respiratory Ventilation, Less than 24 Consecutive Hours, Continuous Positive Airway Pressure (ICD-10-PCS; 2019-06-18)
PROC: 5A09357 Assistance with Respiratory Ventilation, Less than 24 Consecutive Hours, Continuous Positive Airway Pressure (ICD-10-PCS; 2019-06-20)
PROC: 5A09357 Assistance with Respiratory Ventilation, Less than 24 Consecutive Hours, Continuous Positive Airway Pressure (ICD-10-PCS; 2019-06-21)
DX: A41.9 Sepsis, unspecified organism (principal); J15.6 Pneumonia due to other Gram-negative bacteria; J96.21 Acute and chronic respiratory failure with hypoxia; J96.22 Acute and chronic respiratory failure with hypercapnia; J44.0 Chronic obstructive pulmonary disease with (acute) lower respiratory infection; J44.1 Chronic obstructive pulmonary disease with (acute) exacerbation; A04.72 Enterocolitis due to Clostridium difficile, not specified as recurrent; R64 Cachexia; I10 Essential (primary) hypertension; F32.9 Major depressive disorder, single episode, unspecified; R13.10 Dysphagia, unspecified; D72.829 Elevated white blood cell count, unspecified; F41.1 Generalized anxiety disorder; K20.8 Other esophagitis; Z88.1 Allergy status to other antibiotic agents; Z88.8 Allergy status to other drugs, medicaments and biological substances; Z87.891 Personal history of nicotine dependence; Z79.899 Other long term (current) drug therapy; Z80.0 Family history of malignant neoplasm of digestive organs

== ENCOUNTER 2019-11-17 07:56 | Inpatient (IN) | payer OTHER ==
[~2019-11-17] VITALS: Ht 154.9 cm; Wt 43.0 kg
[~2019-11-17 07:56] MED LIST changes: +ACIDOPHILUS1 EAC4 PO; +ALBUTEROL2.5 MG/31 INH; +BENZONATATE100 MG PO; +BROVANA15 MCG/2 M INH; +CLONAZEPAM2 MG PO; +DALIRESP500 MCG PO; +DIFLUCAN200 MG PO; +DILTIAZEM ER180 M2 PO; +EVISTA60 MG PO; +FIRVANQ50 MG/1 ML PO; +PROAIR HFA8.5 GM INH; +PULMICORT0.5 MG/2 M INH; +TRAMADOL 50 MG50 MG PO
[2019-11-17 07:59] VITALS: BP 172/78
[2019-11-17 08:19] LABS: ABSOLUTE EOSINOPHILS 0.2 thou/uL (0.0-0.7); ABSOLUTE LYMPHOCYTES 1.5 thou/uL (0.8-5.3); ABSOLUTE MONOCYTES 0.7 thou/uL (0.0-1.2); ABSOLUTE NEUTROPHILS 6.9 thou/uL (1.6-8.1); BASOPHILS 0.5 %; EOSINOPHILS 1.9 %; HEMATOCRIT 34.3 % (37.0-47.0); HEMOGLOBIN 11.6 gm/dL (12.0-15.0); LYMPHOCYTES 16.1 %; MCH 29.7 pg (26.0-34.0); MCHC 33.8 g/dL (28.0-37.0); MCV 87.6 fL (80.0-100.0); MONOCYTES 7.7 %; MPV 8.8 fl. (7.2-11.1); NUCLEATED RBCS 0 /100WBC; PLATELET COUNT* 275 thou/uL (150-400); POLYS 73.8 %; RBC 3.91 mil/uL (4.20-5.00); RDW-CV 14.2 % (10.5-14.5); WBC 9.4 thou/uL (4.0-11.0)
[2019-11-17 08:27] LABS: PROTIME 10.5 Seconds (9.20-11.50)
[2019-11-17 08:31] LABS: CALCIUM 8.7 mg/dL (8.5-10.1); CREATININE 0.7 mg/dL (0.6-1.3); POTASSIUM 3.7 mmol/L (3.5-5.1)
[2019-11-17] MEDS ORDERED: MUCINEX600 MG PO (08:31)
[2019-11-17 08:35] LABS: ALBUMIN 3.8 g/dL (3.4-5.0); MAGNESIUM 1.6 mg/dL (1.8-2.4); TOTAL BILIRUBIN 0.6 mg/dL (<0.1-1.0); TOTAL PROTEIN 7.3 g/dL (6.4-8.2)
[2019-11-17 08:42] LABS: BE 1.9 mmol/L (-2 to +3); pH 7.322 (7.340-7.450)
[2019-11-17 08:43] LABS: PCO2 57.2 mmHg (35.0-45.0)
[2019-11-17 08:44] LABS: PO2 175.4 mmHg (75.0-100.0)
[2019-11-17 11:19] LABS: URINE BILIRUBIN NEGATIVE (Negative); URINE BLOOD TRACE (Negative); URINE CLARITY CLEAR; URINE COLOR YELLOW; URINE GLUCOSE-RANDOM NEGATIVE (Negative); URINE KETONES TRACE (Negative); URINE LEUKOCYTES-REFLEX NEGATIVE (Negative); URINE NITRITE-REFLEX NEGATIVE (Negative); URINE PROTEIN NEGATIVE (Negative); URINE UROBILINOGEN 0.2 E.U./dl (0.2-1.0)
[2019-11-17 11:25] LABS: AMP/METHAMP Negative (Negative); BARBITURATES Negative (Negative); BENZODIAZEPINES Negative (Negative); COCAINE Negative (Negative); METHADONE Negative (Negative); OPIATES Negative (Negative); PCP Negative (Negative); THC Negative (Negative)
[2019-11-17 13:44] VITALS: BP 122/68
--- NOTE | 2019-11-17 14:13 | EKG ---
[place] [address] ELECTROCARDIOGRAM REPORT Name: SILVIANO COBURN Room: [address] ADM IN M.R.#: [id number] Admission: 11/17/19 Attend Phys: Charlotte richard Sa Discharge: Date of : 51 Date of Service: 11/17/19 0804 Report #: [id number] THIS REPORT FOR: //name// [facility] ED Test Date: 2019-11-17 Test Time: 08:04:40 Pat Name: SILVIANO COBURN Department: Room: [facility] Gender: F Transplant Case Manager: : 1955 Requested By: Meeta Bryan Order Number: [id number] Cristy MD: Fransisco Farris Measurements Intervals [place] Rate: 107 P: 91 HI: 146 QRS: 83 QRSD: 84 T: -90 QT: 286 QTc: 382 Interpretive Statements Sinus tachycardia Borderline right axis deviation Abnormal T, consider ischemia, diffuse leads Artifact in lead(s) III,aVL,aVF,V1,V4,V5 and baseline wander in lead(s) I,V4,V6 Compared to ECG 06/17/2019 12:24:35 T-wave abnormality now present Possible ischemia now present Myocardial infarct finding no longer present Electronically Signed On 11-17-2019 14:11:16 CDT by Fransisco Farris [email or web address] <ELECTRONICALLY SIGNED> By: Fransisco Farris MD, [facility] 11/17/19 1411 0804 0804 Fransisco Farris MD, [facility] /EPI
[2019-11-17 14:39] VITALS: BP 149/79
[2019-11-17 15:59] VITALS: BP 137/65
[2019-11-17 20:00] VITALS: BP 150/63
[2019-11-17 23:55] VITALS: BP 106/50
[2019-11-18 04:00] VITALS: BP 108/48
[2019-11-18 05:29] LABS: HEMATOCRIT 31.2 % (37.0-47.0); HEMOGLOBIN 10.6 gm/dL (12.0-15.0); MCH 29.7 pg (26.0-34.0); MCHC 33.9 g/dL (28.0-37.0); MCV 87.6 fL (80.0-100.0); MPV 9.6 fl. (7.2-11.1); RBC 3.57 mil/uL (4.20-5.00); WBC 5.6 thou/uL (4.0-11.0)
[2019-11-18 05:31] LABS: ALBUMIN 3.3 g/dL (3.4-5.0); CALCIUM 8.8 mg/dL (8.5-10.1); CREATININE 0.7 mg/dL (0.6-1.3); MAGNESIUM 1.8 mg/dL (1.8-2.4); PHOSPHORUS* 2.4 mg/dL (2.5-4.9); POTASSIUM 3.6 mmol/L (3.5-5.1)
[2019-11-18 07:54] VITALS: BP 116/59
[2019-11-18 12:00] VITALS: BP 104/56
[2019-11-18 16:00] VITALS: BP 102/46
--- NOTE | 2019-11-18 16:43 | 2DMMODE ---
[place] [address] 2 D/M-MODE ECHOCARDIOGRAM Name: IRISHSILVIANO Room: [address] IN M.R.#: [id number] Admission: 11/17/19 Attend Phys: Charlotte richard Sa Discharge: Date of : 51 Date of Service: 11/18/19 1641 Report #: [id number] THIS REPORT FOR: cc: Osito Chandler MD, David L. MD Liston, Michael J. MD [facility] ~ APPROVED REPORT Study performed: 11/18/2019 09:29:27 EXAM: Comprehensive 2D, Doppler, and color-flow Echocardiogram Patient Location: In-Patient BSA: 1.20 HR: 94 bpm BP: 116/59 mmHg Other Information Study Quality: Good Indications Dyspnea 2D Dimensions IVSd: 7.76 (7-11mm) LVOT Diam: 15.81 (18-24mm) LVDd: 34.97 mm PWd: 7.89 (7-11mm) Ascending Ao: 33.76 (22-36mm) LVDs: 28.96 (25-40mm) Aortic Root: 20.16 mm Volumes Left Atrial Volume (Systole) LA ESV Index: 23.50 mL/m2 Aortic Valve AoV Peak Mohamud.: 1.30 m/s AO Peak Gr.: 6.76 mmHg LVOT Max P.88 mmHg AO Mean Gr.: 3.85 mmHg LVOT Mean P.07 mmHg LVOT Max V: 0.98 m/s AO V2 VTI: 24.22 cm LVOT Mean V: 0.66 m/s LORNA (VTI): 1.65 cm2 LVOT V1 VTI: 20.38 cm Mitral Valve E/A Ratio: 0.69 [place] [address] 2 D/M-MODE ECHOCARDIOGRAM Name: SILVIANO COBURN Room: [address] IN ..#: [id number] Admission: 11/17/19 Attend Phys: Charlotte richard Sa Discharge: Date of : 51 Date of Service: 11/18/19 1641 Report #: [id number] MV Decel. Time: 127.46 ms MV E Max Mohamud.: 0.63 m/s MV PHT: 36.96 ms MVA (PHT): 5.95 cm2 TDI E/Lateral E': 5.73 E/Medial E': 7.00 Medial E' Mohamud.: 0.09 m/s Lateral E' Mohamud.: 0.11 m/s Pulmonary Valve PV Peak Mohamud.: 0.93 m/s PV Peak Gr.: 3.45 mmHg Tricuspid Valve RAP Estimate: 10.00 mmHg TR Peak Gr.: 33.85 mmHg RVSP: 43.85 mmHg PA Pressure: 43.85 mmHg Left Ventricle The left ventricle is normal size. There is a focal region of hypokinesis involving the distal septum distal anterior wall and septal and anterior portions of the apex. There is normal left ventricular wall thickness. Left ventricular systolic function preserved. LVEF is 55-60%. Grade I - abnormal relaxation pattern. Right Ventricle The right ventricle is normal size. The right ventricular systolic function is normal. Atria The left atrium size is normal. The right atrium size is normal. Aortic Valve The aortic valve is normal in structure. No aortic regurgitation is present. There is no aortic valvular stenosis. Mitral Valve The mitral valve is normal in structure. There is no mitral valve regurgitation noted. No evidence of mitral valve stenosis. Tricuspid Valve The tricuspid valve is normal in structure. Mild tricuspid regurgitation. The RVSP is 28 [place] [address] 2 D/M-MODE ECHOCARDIOGRAM Name: IRISHSILVIANO Room: [address] IN [facility]#: [id number] Admission: 11/17/19 Attend Phys: Charlotte richard Sa Discharge: Date of : 51 Date of Service: 11/18/19 1641 Report #: [id number] Pulmonic Valve The pulmonary valve is normal in structure. There is no pulmonic valvular regurgitation. Great Vessels The aortic root is normal in size. IVC is normal in size and collapses >50% with inspiration. Pericardium Mild circumferential pericardial effusion. No echo indications of pericardial tamponade. <Conclusion> The left ventricle is normal size. There is normal left ventricular wall thickness. The left ventricle is normal size. There is normal left ventricular wall thickness. Left ventricular systolic function preserved. LVEF is 55-60%. Grade I - abnormal relaxation pattern. There is a focal region of hypokinesis involving the distal septum distal anterior wall and septal and anterior portions of the apex. Mild tricuspid regurgitation. The RVSP is 28 mmHg. IVC is normal in size and collapses >50% with inspiration. Mild circumferential pericardial effusion. No echo indications of pericardial tamponade. <ELECTRONICALLY SIGNED> By: John Mendez MD, FACC 11/18/191640 40 40 John Mendez MD, FACC /INF
[2019-11-18 20:00] VITALS: BP 113/54
[2019-11-19 00:12] VITALS: BP 113/60
[2019-11-19 04:52] LABS: HEMATOCRIT 29.7 % (37.0-47.0); HEMOGLOBIN 9.9 gm/dL (12.0-15.0); MCH 29.5 pg (26.0-34.0); MCHC 33.4 g/dL (28.0-37.0); MCV 88.3 fL (80.0-100.0); MPV 9.4 fl. (7.2-11.1); NUCLEATED RBCS 0 /100WBC; PLATELET COUNT* 305 thou/uL (150-400); RBC 3.36 mil/uL (4.20-5.00); RDW-CV 14.2 % (10.5-14.5); WBC 16.4 thou/uL (4.0-11.0)
[2019-11-19 05:07] LABS: CALCIUM 9.2 mg/dL (8.5-10.1); CREATININE 0.9 mg/dL (0.6-1.3); MAGNESIUM 1.8 mg/dL (1.8-2.4); POTASSIUM 3.7 mmol/L (3.5-5.1)
[2019-11-19 05:10] VITALS: BP 123/61
[2019-11-19 05:59] LABS: ABSOLUTE LYMPHOCYTES 0.8 thou/uL (0.8-5.3); ABSOLUTE MONOCYTES 0.5 thou/uL (0.0-1.2); ABSOLUTE NEUTROPHILS 15.1 thou/uL (1.6-8.1); ANISOCYTOSIS 1+; PLATELET ESTIMATE ADEQUATE; POIKILOCYTOSIS 1+
--- NOTE | 2019-11-19 07:39 | CON ---
[address] [address] CONSULTATION Name: IRISHSILVIANO M Room: [address] IN M.R.#: [id number] Admission: 11/17/19 Attend Phys: Charlotte Esquivel Discharge: Date of : 51 Report #: [id number] THIS REPORT FOR: //name// cc: Osito Chandler MD, David L. MD ~ THIS REPORT FOR: //name// CC: Osito Kelley DATE OF SERVICE: 11/18/2019 REQUESTING PHYSICIAN: Charlotte Kelley MD REASON FOR CONSULTATION: Shortness of breath and end-stage COPD. HISTORY OF PRESENT ILLNESS: A 64-year-old female with past medical history includes an extensive history of smoking. She has now discontinued. She does have a history of chronic hypoxemic and hypercarbic respiratory failure secondary to severe COPD. The patient is on Trilogy as well as oxygen alf. The patient also does have a history of recent C. difficile colitis in June of this year. The patient is now admitted yesterday. Presentation was with right-sided chest pain as well as shortness of breath. The patient also reported abdominal pain. When I asked her in more detail, apparently the patient was helping a family member to place grocery items in her freezer and may have hurt herself while doing so. The patient is noted to be in acute as well as chronic hypercarbic and hypoxemic respiratory failure based on arterial blood gases performed on admission. The patient has been treated with Solu-Medrol as well as nebulized bronchodilators. She did have chest x-rays performed, which are consistent with severe COPD and we do not saw any infiltrate. There is no rib fracture detected. The patient also did undergo a CT of the abdomen and pelvis. Since admission, the patient reports a significant improvement in her shortness of breath. Home Trilogy is here and she did wear it last night. The patient reports that her shortness of breath and cough are now at baseline. She has had on and off nasal discharge, which is also at baseline. The patient had a low-grade elevation in temperature upon admission, she has been afebrile since then. She says that her rib pain has now completely subsided. The patient does report that she has been constipated recently. At this time, she does not have any abdominal pain either. REVIEW OF SYSTEMS: The patient does not [place] [address] CONSULTATION Name: SILVIANO COBURN Room: [address] IN [facility]#: [id number] Admission: 11/17/19 Attend Phys: Charlotte Esquivel Discharge: Date of : 51 Report #: [id number] There is no calf pain. She is not complaining of nausea or vomiting. She has some vague joint pains, which are currently at baseline. I asked her a total of 10 questions for review of systems. The patient answered to the negative except as mentioned above. PAST MEDICAL HISTORY: Chronic hypoxemic and hypercarbic respiratory failure secondary to severe COPD. The patient has had significant hypercarbia on previous arterial blood gases; however, her baseline pCO2 is not available to me at this time. She does appear emaciated, has malnutrition with a body mass index decreased to 13.4. I do not have any measure of her left ventricular ejection fraction available at this time. Also, history of anxiety, hypertension, influenza. She has had pneumonia in the past. SOCIAL HISTORY: There is an extensive history of smoking more than a pack a day more than 40 years. She says that she discontinued several years ago. No known history of heavy alcohol use or illegal drug use. CURRENT MEDICATIONS: List in organgir.am reviewed. HOME MEDICATIONS: List also in organgir.am reviewed. FAMILY HISTORY: Cancer, COPD, diabetes, heart disease, hypertension. ALLERGIES: FOSAMAX, ACTONEL AND AVELOX ARE MENTIONED ALLERGIES. PHYSICAL EXAMINATION: GENERAL: She is alert, awake and oriented, does not appear to be in any distress at this time. A reduction in body mass index to 13.4 is noted. VITAL SIGNS: She has a pulse of 103, blood pressure of 104/56, respiratory rate around 18 at the time of my examination. She is saturating 94% on 2 liters nasal cannula. Afebrile with a temperature of 36.7. There is an isolated elevation in temperature to 37.5 on admission. Since then, she has been afebrile. HEENT: Head is normocephalic and atraumatic. Pupils are equal and reactive. There is no thrush in her throat. NECK: Does not show raised JVP, asymmetry, mass or lymph nodes. CHEST: Symmetrical expansion on inspection and palpation. On auscultation, breath sounds are bilaterally equal, decreased, bilaterally equal. No added sounds. She does not have any tenderness towards the left side of her chest where she had rib pain earlier. There are no skin changes in this region. The patient says the pain has now subsided. ABDOMEN: Soft and nontender. EXTREMITIES: Lower extremities show no edema, no calf tenderness. SKIN: Dry and intact. NEUROLOGICAL: Moves all extremities bilaterally equally and spontaneously with no focal deficit identified. [address] [address] CONSULTATION Name: SILVIANO COBURN Room: [address] IN M.R.#: [id number] Admission: 11/17/19 Attend Phys: Charlotte richard Brooks Discharge: Date of : 51 Report #: [id number] LABORATORY DATA: The patient's chest x-ray films as well as report are reviewed. These are as discussed above. The rib x-rays also reviewed. The patient had a CT of the abdomen and pelvis with IV contrast performed yesterday, I reviewed the report as well. ASSESSMENT AND PLAN: 1. Qakln-ss-yvqxwjo hypoxemic and hypercarbic respiratory failure. The patient remains on a Trilogy device as well as oxygen. We will continue the same long-term. 2. Chronic obstructive pulmonary disease exacerbation. The patient's respiratory symptoms are now returning towards baseline. I would cut back on Solu-Medrol dose. The patient may benefit from outpatient pulmonary followup. Considering significant emaciation with a body mass index decreased to only 13.4, may consider low dose long-term therapy with prednisone for her chronic obstructive pulmonary disease. Consideration may be given to gradually decreasing her steroid dose to around 5 mg of prednisone every other day until she could be seen again for pulmonary followup as an outpatient. 3. Rib pain. I feel that this likely was musculoskeletal and has already subsided. I considered the possibility of thromboembolism; however, at this time, I feel that we will be putting the patient more risk and benefit if we are to investigate this further today and therefore, I did not proceed with the same at this time. Should the patient have a return of rib pain, then I would consider obtaining D-dimer and then assessing as to whether we should proceed with a CTA chest. Of note, the patient did receive IV dye with a CT of the abdomen and pelvis yesterday. Also, I would like to look at her right heart pressures and I ordered an echocardiogram. The report is awaited. 4. Past medical history of Clostridium difficile colitis. 5. Deep vein thrombosis prophylaxis. I recommend sequential compression devices when in bed and I recommend ambulating the patient. If not able to ambulate the patient, then we will consider adding Lovenox. 6. Gastrointestinal prophylaxis, on Pepcid. 7. Anemia. Defer followup to the primary service. Thanks for this consultation. <ELECTRONICALLY SIGNED> By: Jose Frank MD 11/19/19 0739 1444 1523Amandy Frank MD /nt
[2019-11-19 08:00] VITALS: BP 144/81
[2019-11-19] MEDS ORDERED: SENNA-TIME S T1 EACH PO (11:24)
[2019-11-19] MEDS ORDERED: REMERON15 M2 PO (11:24)
[2019-11-19] MEDS ORDERED: APAP W/CODEINE1 TA2 PO (11:24)
[2019-11-19] MEDS ORDERED: PREDNISONE 10 M10 MG PO (11:24)
[2019-11-19 12:17] VITALS: BP 144/81
[2019-11-19 12:32] VITALS: BP 114/62
== END 2019-11-19 18:00 | disposition home or self-care (01) | DRG 189 ==
LOC: M.ERS 07:56 → M.2W 10:19 → M.TBA-ER 10:19 → M.2W 14:09
PROVIDERS: Internal Medicine Critical Care Medicine; Personal Emergency Response Attendant; ADMIT Family Medicine
PROC: 5A09357 Assistance with Respiratory Ventilation, Less than 24 Consecutive Hours, Continuous Positive Airway Pressure (ICD-10-PCS; principal; 2019-11-17)
PROC: 5A09357 Assistance with Respiratory Ventilation, Less than 24 Consecutive Hours, Continuous Positive Airway Pressure (ICD-10-PCS; 2019-11-19)
DX: J96.22 Acute and chronic respiratory failure with hypercapnia (principal); E43 Unspecified severe protein-calorie malnutrition; R65.11 Systemic inflammatory response syndrome (SIRS) of non-infectious origin with acute organ dysfunction; J44.1 Chronic obstructive pulmonary disease with (acute) exacerbation; Z68.1 Body mass index [BMI] 19.9 or less, adult; J96.21 Acute and chronic respiratory failure with hypoxia; I10 Essential (primary) hypertension; D64.9 Anemia, unspecified; K59.00 Constipation, unspecified; E83.42 Hypomagnesemia; M81.0 Age-related osteoporosis without current pathological fracture; E78.5 Hyperlipidemia, unspecified; F41.1 Generalized anxiety disorder; Z88.1 Allergy status to other antibiotic agents; Z88.8 Allergy status to other drugs, medicaments and biological substances; Z87.891 Personal history of nicotine dependence; Z83.3 Family history of diabetes mellitus; Z82.49 Family history of ischemic heart disease and other diseases of the circulatory system; Z83.6 Family history of other diseases of the respiratory system; Z79.899 Other long term (current) drug therapy

== ENCOUNTER → 2020-04-24 | Outpatient (CLI) | payer OTHER ==
[~2020-04-24] MED LIST changes: +APAP W/CODEINE1 TA2 PO; +REMERON15 M2 PO; +SENNA-TIME S T1 EACH PO
== END ==
LOC: M.RAD 04-21 10:30
PROVIDERS: ATTEND Internal Medicine
DX: Z12.31 Encounter for screening mammogram for malignant neoplasm of breast (principal); M81.0 Age-related osteoporosis without current pathological fracture

== ENCOUNTER → 2020-09-20 | Outpatient (CLI) | payer OTHER | LOC: M.LAB 14:09 | PROVIDERS: ATTEND Internal Medicine Critical Care Medicine | DX: J44.9 Chronic obstructive pulmonary disease, unspecified (principal); J96.11 Chronic respiratory failure with hypoxia; J98.4 Other disorders of lung; M40.04 Postural kyphosis, thoracic region ==

== ENCOUNTER 2021-04-10 15:43 | Inpatient (IN) | payer OTHER ==
[~2021-04-10] VITALS: Ht 154.9 cm; Wt 37.2 kg
[2021-04-10 15:50] VITALS: BP 137/84
[2021-04-10] MEDS ORDERED: FAMOTIDINE40 MG PO (16:05)
[2021-04-10] MEDS ORDERED: VAZALORE81 MG PO (16:06)
[2021-04-10 16:12] LABS: ABSOLUTE LYMPHOCYTES 0.5 thou/uL (0.8-5.3); ABSOLUTE MONOCYTES 0.3 thou/uL (0.0-1.2); ABSOLUTE NEUTROPHILS 4.1 thou/uL (1.6-8.1); BASOPHILS 0.5 %; HEMATOCRIT 33.5 % (37.0-47.0); HEMOGLOBIN 11.1 gm/dL (12.0-15.0); LYMPHOCYTES 10.1 %; MCH 27.7 pg (26.0-34.0); MCHC 33.2 g/dL (28.0-37.0); MCV 83.3 fL (80.0-100.0); MONOCYTES 5.6 %; MPV 7.4 fl. (7.2-11.1); NUCLEATED RBCS 0 /100WBC; PLATELET COUNT* 291 thou/uL (150-400); POLYS 83.8 %; RBC 4.02 mil/uL (4.20-5.00); RDW-CV 12.6 % (10.5-14.5); WBC 4.8 thou/uL (4.0-11.0)
[2021-04-10 16:24] LABS: CALCIUM 8.3 mg/dL (8.5-10.1); CREATININE 0.6 mg/dL (0.6-1.3); POTASSIUM 3.8 mmol/L (3.5-5.1)
[2021-04-10 16:34] LABS: MAGNESIUM 1.6 mg/dL (1.8-2.4); TOTAL BILIRUBIN 0.2 mg/dL (<0.1-1.0); TOTAL PROTEIN 6.2 g/dL (6.4-8.2)
--- NOTE | 2021-04-10 16:36 | EKG ---
[place] [address] ELECTROCARDIOGRAM REPORT Name: SILVIANO COBURN Room: [facility]#: [id number] Admission: 04/10/21 Attend Phys: Discharge: Date of : 51 Date of Service: 04/10/21 1554 Report #: [id number] THIS REPORT FOR: //name// [place] [facility] Test Date: 2021-04-10 Test Time: 15:54:24 Pat Name: SILVIANO COBURN Department: Room: Gender: [employer]: : 1955 Requested By: Lui Carreon Order Number: [id number] MD: John Mendez Measurements Intervals Reading Rate: 101 P: 84 PA: 137 QRS: 75 QRSD: 101 T: 79 QT: 321 QTc: 416 Interpretive Statements Sinus tachycardia Probable left atrial enlargement ST depression, anterolateral leads, consider ischemia Baseline wander in lead(s) I Compared to ECG 11/17/2019 08:04:40 ST (T wave) deviation now present T-wave abnormality no longer present Electronically Signed On 04-10-2021 16:36:17 CDT by Jhon Mendez [email or web address] <ELECTRONICALLY SIGNED> By: John Mendez MD, FACC 04/10/21 1636 1554 1554 John Mendez MD, FACC /EPI
[2021-04-10 20:10] VITALS: BP 130/77
[2021-04-10 21:30] VITALS: BP 152/74
--- NOTE | 2021-04-10 22:30 | NUR ---
ADMIT NOTE: RECIEVED PT VIA [facility] FROM ED , PT PLACED IN COVID ROOM , DENSITOMETER READER PLACED SHOWS NSR , VSS ASSESSMENT COMPLETED AND DATA BASE COMPLETED. PT REQUESTING RESP TX. SAT 96% RR 22, DR HENNESSY CALLED ORDER OBTAINED. DISCUSS PLAN OF CARE , PT VERBALIZED UNDERSTANDING AND AGREEABLE. CALL PLACED TO DR BLAKE REGARDING INCREASED TROPOIN,ORDERS RECIEVED. PT DENIES CHEST OR SOA. WILL CONTINUE MONITOR AND REPORT CHANGES.
[2021-04-11 00:35] VITALS: BP 131/76
[2021-04-11 04:27] VITALS: BP 88/44
[2021-04-11 08:00] VITALS: BP 89/48
[2021-04-11 09:12] LABS: APTT 35.4 Seconds (25.0-31.3); PROTIME 10.2 Seconds (9.20-11.50)
[2021-04-11 09:16] LABS: CHOLESTEROL 157 mg/dL (<200); HDL CHOLESTEROL 45 mg/dL (>40); LDL CHOLESTEROL 87 mg/dL (<100); TC:HDL 3.5 Ratio (Not establshd); TRIGLYCERIDE 126 mg/dL (<150); VLDL 25 mg/dL (<40)
[2021-04-11 09:21] LABS: SERUM ASSESSMENT Clear
--- NOTE | 2021-04-11 10:02 | NUR ---
CALLED PATIENT ON PHONE, NO ANSWER AT THIS TIME. PATIENT IS COVID +.
[2021-04-11 12:51] VITALS: BP 99/55
--- NOTE | 2021-04-11 15:51 | NUR ---
Case and plan of care reviewed with physician each weekday during patient's length of stay. Continue plan of care per physician orders. CONTINUE TO MONITOR ELEVATED POTASSIUM AND ELEVATED TROPONIN LEVELS. PATIENT ALREADY HAS O2 AT HOME. CM WILL CONTINUE TO FOLLOW FOR DISCHARGE PLANS. NO NEW NEEDS ANTICIPATED AT THIS TIME.
[2021-04-11 16:30] VITALS: BP 98/54
--- NOTE | 2021-04-11 17:56 | 2DMMODE ---
[place] [address] 2 D/M-MODE ECHOCARDIOGRAM Name: IRISHSILVIANO M Room: [address] IN .R.#: [id number] Admission: 04/10/21 Attend Phys: Sourav Springer Discharge: Date of : 51 Date of Service: 04/11/21 1756 Report #: [id number] THIS REPORT FOR: cc: Juan Christy MD, Meng MD Liston, Michael J. MD [facility] ~ APPROVED REPORT Study performed: 04/11/2021 15:52:58 EXAM: Comprehensive 2D, Doppler, and color-flow Echocardiogram Patient Location: Bedside BSA: 1.28 HR: 68 bpm BP: 88/44 mmHg Other Information Study Quality: Good Indications Myocardial Infarction 2D Dimensions IVSd: 10.79 (7-11mm) LVOT Diam: 19.45 (18-24mm) LVDd: 35.65 mm PWd: 6.16 (7-11mm) Ascending Ao: 32.18 (22-36mm) LVDs: 27.19 (25-40mm) Aortic Root: 24.28 mm Volumes Left Atrial Volume (Systole) LA ESV Index: 16.50 mL/m2 Aortic Valve AoV Peak Mohamud.: 1.16 m/s AO Peak Gr.: 5.42 mmHg LVOT Max P.40 mmHg AO Mean Gr.: 3.46 mmHg LVOT Mean P.18 mmHg LVOT Max V: 0.77 m/s AO V2 VTI: 20.33 cm LVOT Mean V: 0.50 m/s LORNA (VTI): 1.88 cm2 LVOT V1 VTI: 12.87 cm Mitral Valve E/A Ratio: 0.82 [place] [address] 2 D/M-MODE ECHOCARDIOGRAM Name: SILVIANO COBURN Room: [address] IN .R.#: [id number] Admission: 04/10/21 Attend Phys: Sourav Springer Discharge: Date of : 51 Date of Service: 04/11/21 1756 Report #: [id number] MV Decel. Time: 261.06 ms MV E Max Mohamud.: 0.66 m/s MV PHT: 75.71 ms MVA (PHT): 2.91 cm2 TDI E/Lateral E': 9.43 E/Medial E': 11.00 Medial E' Mohamud.: 0.06 m/s Lateral E' Mohamud.: 0.07 m/s Pulmonary Valve PV Peak Mohamud.: 1.09 m/s PV Peak Gr.: 4.78 mmHg Tricuspid Valve RAP Estimate: 5.00 mmHg TR Peak Gr.: 29.63 mmHg RVSP: 34.63 mmHg PA Pressure: 34.63 mmHg Left Ventricle The left ventricle is normal size. There is normal LV segmental wall motion. There is normal left ventricular wall thickness. Left ventricular systolic function is normal. LVEF is 60-65%. Grade I - abnormal relaxation pattern. Right Ventricle The right ventricle is normal size. The right ventricular systolic function is normal. Atria The left atrium size is normal. The right atrium size is normal. Aortic Valve The aortic valve is normal in structure. No aortic regurgitation is present. There is no aortic valvular stenosis. Mitral Valve The mitral valve is normal in structure. There is no mitral valve regurgitation noted. No evidence of mitral valve stenosis. Tricuspid Valve The tricuspid valve is normal in structure. Trace tricuspid regurgitation. Pulmonic Valve The pulmonary valve is normal in structure. [place] [address] 2 D/M-MODE ECHOCARDIOGRAM Name: IRISH,SILVIANO Pimentel Room: [address]#: [id number] Admission: 04/10/21 Attend Phys: Sourav Springer Discharge: Date of : 51 Date of Service: 04/11/21 1756 Report #: [id number] valvular regurgitation. Great Vessels The aortic root is normal in size. Aortic arch not well visualized. IVC is normal in size and collapses >50% with inspiration. Pericardium There is no pericardial effusion. <Conclusion> The left ventricle is normal size. There is normal left ventricular wall thickness. Left ventricular systolic function is normal. LVEF is 60-65%. Grade I - abnormal relaxation pattern. Trace tricuspid regurgitation. IVC is normal in size and collapses >50% with inspiration. <ELECTRONICALLY SIGNED> By: John Mendez MD, FACC 04/11/211755 55 55 John Mendez MD, FACC /INF
[2021-04-11 20:00] VITALS: BP 107/53
[2021-04-12] VITALS (7 sets, daily range): BP systolic 97–114; BP diastolic 49–66
[2021-04-12 08:45] LABS: HEMATOCRIT 31.2 % (37.0-47.0); HEMOGLOBIN 10.3 gm/dL (12.0-15.0); MCH 27.8 pg (26.0-34.0); MCHC 33.2 g/dL (28.0-37.0); MCV 83.8 fL (80.0-100.0); RBC 3.72 mil/uL (4.20-5.00); RDW-CV 12.7 % (10.5-14.5); WBC 5.3 thou/uL (4.0-11.0)
[2021-04-12 08:48] LABS: CALCIUM 8.3 mg/dL (8.5-10.1); CREATININE 0.8 mg/dL (0.6-1.3); POTASSIUM 3.5 mmol/L (3.5-5.1)
--- NOTE | 2021-04-12 10:10 | NUR ---
ADMISSION ASSESSMENT APR 12, 2021 SILVIANO COBURN COVID +, N/V X 1 WEEK ADMITTED FROM HOME BY AMBULANCE MENTAL STATUS A & O X3 LIVING ARRANGEMENT: 4 PLEX, NO STAIRS SUPPORT SYSTEM: DAUGHTERDANY [phone] CAN RETURN TO PRIOR LIVING ARRANGEMENTS: IF NEEDED, HOME WITH HER DAUGHTER ADL'S: INDEPENDENT HOWEVER, NO LONGER DRIVES, DEPENDENT ON SON-IN LAW OR DAUGHTERS FOR TRANSPORTATION. ASSISTIVE DEVICES: OWNS SHOWER CHAIR, C-PAP, O2 W/APRIA WEARS 2L/NC DURING DAYTIME HOURS [facility] PCP: DR. KEITH
--- NOTE | 2021-04-12 15:08 | NUR ---
Case and plan of care reviewed with physician each weekday during patient's length of stay. Continue plan of care per physician orders. COVID POSITIVE, NSTEMI 04/11 CARDIOLOGY CONSULTED IV HEPARIN GTT. MEDICALLY TREATING UNTIL RESPIRATORY STATUS IS MORE STABLE PRESENTLY ON 2L/NC. CM WILL CONTINUE TO FOLLOW FOR DISCHARGE PLANNING. NO NEEDS ANTICIPATED AT THIS TIME.
--- NOTE | 2021-04-12 17:38 | NUR ---
Assumed care at 0730. Pt is alert and oriented. Assessment done and charted. Pt is +COVID. Pt is on 3liters of oxygen. Pt is yet to have bowel movement. Possibly dc'd tomorrow if patient have a bowel movement. Will continue to provide care for pt.
[2021-04-13] VITALS: BP 143/73
[2021-04-13 04:43] VITALS: BP 149/75
[2021-04-13 05:39] LABS: HEMOGLOBIN 10.7 gm/dL (12.0-15.0); MCHC 32.5 g/dL (28.0-37.0); MCV 82.9 fL (80.0-100.0); MPV 7.4 fl. (7.2-11.1); RBC 3.98 mil/uL (4.20-5.00); RDW-CV 12.9 % (10.5-14.5); WBC 18.2 thou/uL (4.0-11.0)
[2021-04-13 05:45] LABS: CALCIUM 8.3 mg/dL (8.5-10.1); CREATININE 0.6 mg/dL (0.6-1.3); POTASSIUM 4.3 mmol/L (3.5-5.1)
[2021-04-13 08:05] VITALS: BP 115/62
[2021-04-13 12:17] VITALS: BP 104/56
--- NOTE | 2021-04-13 13:35 | NUR ---
Assumed care at 0730. Pt is alert and oriented. Assessment done and charted. Pt continue to require Oxygen. Pt had a bowel movement yesterday. Possible dc'd today.
--- NOTE | 2021-04-13 16:07 | NUR ---
Case and plan of care reviewed with physician each weekday during patient's length of stay. Continue plan of care per physician orders, plan is for Discharge today. Called pt x3 over 1 1/2 hours and unable to reach. Called Dtr Elsa [phone]. Elsa states mom turned phones off so she could nap. Discussed that Dr felt pt would benefit from HH after discharge. Dtr agrees and will let mom when she calls her after nap. Elsa states pt has used [facility] in the past and she would like us to send referral to them. [facility] called [phone] and spoke to Ana. Fax referral info to [phone]. Notified Dr ENGLE that HH wanted and would need those orders on discharge. Confirmed back would add them.
[2021-04-13] MEDS ORDERED: LIPITOR 40 MG T40 M1 PO (16:53)
[2021-04-13 17:17] VITALS: BP 104/56
--- NOTE | 2021-04-13 19:17 | NUR ---
Pt was dc'd at 1845. Pt left with daughter. Dc'd instruction was given. IV Taken out and Pt left with her belongs.
[2021-04-13 19:21] VITALS: BP 104/56
--- NOTE | 2021-04-16 09:20 | EKG ---
[place] [address] ELECTROCARDIOGRAM REPORT Name: SILVIANO COBURN Room: [address] IN ..#: [id number] Admission: 04/10/21 Attend Phys: Sourav Springer Discharge: 04/13/21 Date of : 51 Date of Service: 04/11/21 1727 Report #: [id number] THIS REPORT FOR: //name// [facility] Test Date: 2021-04-11 Test Time: 17:27:21 Pat Name: SILVIANO COBURN Department: Room: [facility] Gender: F [employer]: LYUDMILA : 1955 Requested By: Sourav Springer Order Number: [id number] Reading MD: Osito Montanez Measurements Intervals Ramona Rate: 82 P: 88 TX: 145 QRS: 69 QRSD: 102 T: 265 QT: 457 QTc: 534 Interpretive Statements Sinus rhythm nonspecific st segment changes Probable anterior infarct, age indeterminate Prolonged QT interval Compared to ECG 04/10/2021 15:54:24 Prolonged QT interval now present Sinus tachycardia no longer present Possible ischemia no longer present Electronically Signed On 04-16-2021 9:20:28 CDT by Osito Montanez [email or web address] <ELECTRONICALLY SIGNED> By: Osito Montanez MD, FACC 04/16/21919 26 26 Osito Montanez MD, [facility] /EPI
--- NOTE | 2021-04-17 10:21 | NUR ---
Vm from Elsa noonan, dtr of pt asking some additional questions about HH services left VM 04/13 and 04/17. No call back recvd to date. Called pt and let her know Dtr called with Questions about HH and could CM answer these with pt(her). Pt stated didn't have time talk and really don't need it.
== END 2021-04-13 18:45 | disposition home or self-care (01) | DRG 280 ==
LOC: M.ERS 15:43 → M.ORTHSURG 17:28 → M.TBA-ER 17:28 → M.ORTHSURG 20:00 → M.2W 04-12 22:55 → M.ORTHSURG 04-12 22:59
PROVIDERS: Internal Medicine; Physician Assistant; Registered Nurse; ADMIT Internal Medicine; ATTEND Internal Medicine
PROC: 5A0935A Assistance with Respiratory Ventilation, Less than 24 Consecutive Hours, High Flow/Velocity Cannula (ICD-10-PCS; principal; 2021-04-13)
DX: I21.4 Non-ST elevation (NSTEMI) myocardial infarction (principal); U07.1 COVID-19; F41.9 Anxiety disorder, unspecified; D64.9 Anemia, unspecified; J44.9 Chronic obstructive pulmonary disease, unspecified; E78.5 Hyperlipidemia, unspecified; I10 Essential (primary) hypertension; Z82.49 Family history of ischemic heart disease and other diseases of the circulatory system; Z88.1 Allergy status to other antibiotic agents; Z88.8 Allergy status to other drugs, medicaments and biological substances; Z87.891 Personal history of nicotine dependence; Z99.81 Dependence on supplemental oxygen

== ENCOUNTER → 2021-08-14 | Outpatient (CLI) | payer OTHER ==
[~2021-08-14] MED LIST changes: +FAMOTIDINE40 MG PO; +LIPITOR 40 MG T40 M1 PO; +VAZALORE81 MG PO
--- NOTE | 2021-08-14 16:20 | CARDNUC ---
[place] [id number] CARDIAC NUCLEAR IMAGING REPORT Name: IRISHBOYDSILVIANO Margarito Room: [facility]#: [id number] Admission: 08/14/21 Attend Phys: Alejandra Patrick RN Discharge: Date of : 51 Date of Service: 08/14/21 1620 Report #: [id number] THIS REPORT FOR: cc: Juan Christy MD, Meng MD Biggs, F. Douglas MD [facility] ~ APPROVED REPORT Study performed: 08/14/2021 14:18:26 Indication: Troponin elevation Patient Location: Out-Patient Stress Nurse: Alla Montes RN Ht: 5 ft 1 in Wt: 72 lbs BSA: 1.22 m2 BMI: 13.60 Medical History Medical History: HTN, CAD s/p OR, COPD Medications: ASA-81, DILTIAZEM Allergies: ACTONEL, AVELOX, FOSAMAX Cardiac Risk Factors: Age, FHX of CAD, HTN, Tobacco History (Former) Exercise History: Sedentary Resting Data Rest SPECT myocardial perfusion imaging was performed in supine position 30 minutes following the intravenous injection of 10.3 mCi of Tc-99m Sestamibi. Time of rest injection: 13:05 The images were gated to evaluate regional wall motion and calculate left ventricular ejection fraction. Administration Route: IV Administration Site: Left AC Pharmacologic Stress Pharmacologic stress test was performed by injecting Regadenoson 0.4 mg IV push over 10-15 seconds immediately followed by the intravenous injection of 34.7 mCi of Tc-99m Sestamibi. Time of stress injection: 14:20 Administration Route: IV Administration Site: Left AC Heart Rate at time of stress injection: 105 bpm. Gated Stress SPECT was performed 45 [place] [id number] CARDIAC NUCLEAR IMAGING REPORT Name: SILVIANO COBURN Room: [facility]#: [id number] Admission: 08/14/21 Attend Phys: Alejandra Patrick RN Discharge: Date of : 51 Date of Service: 08/14/21 1620 Report #: [id number] injection. The images were gated to evaluate regional wall motion and calculate left ventricular ejection fraction. Stress Test Details Stress Test: Pharmacologic stress testing performed using 0.4 mg of regadenoson per 5 mL given IV over 10 seconds. Reason for pharmacologic stress test: physical limitation. 60 mg caffeine given for nausea. HR Max Heart Rate (APMHR): 152 bpm Resting HR: 85 bpm Target HR (85% APMHR): 129 bpm Max HR Achieved: 105 bpm % of APMHR: 69 Recovery HR: 94 bpm HR response to stress: Normal HR response to stress BP Resting BP: 146/78 mmHg Max BP: 184/71 mmHg Recovery BP: 146/72 mmHg BP response to stress: Abnormal hypertensive response to stress. ECG Resting ECG: Sinus Rhythm, normal EKG Stress ECG: Sinus Rhythm, normal EKG ST Change: None Arrhythmia: None Recovery ECG: Sinus Rhythm, normal EKG Recovery ST Change: None Recovery Arrhythmia: None Clinical Reason for Termination: Completed protocol Stress Symptoms: Nausea Nurse Comments ZOFRAN 4 MG IVP GIVEN FOR NAUSEA Stress ECG Conclusion Normal hemodynamic response to pharmacologic stress. Clinical response nondiagnostic. EKG response nondiagnostic due to heart rate there was an echo to exclude ischemia. Study Quality Study: Fair Artifact: [place] [id number] CARDIAC NUCLEAR IMAGING REPORT Name: SILVIANO COBURN Room: [facility]#: [id number] Admission: 08/14/21 Attend Phys: Alejandra Patrick RN Discharge: Date of : 51 Date of Service: 08/14/21 1620 Report #: [id number] Lung Uptake: Normal Study Data At rest, the left ventricular ejection fraction was 58%.. Post stress, the left ventricular ejection was 54%.. SSS: 3 SRS: 3 SDS: 0 TID = 1.08. Perfusion The resting study demonstrates a moderate in size and moderate in severity apical defect as well as a moderate in size and mild in intensity septal defect. There is also a small in size and moderate intensity anteroapical defect. The post stress images are as described above. Additionally however there is a large in size and mild intensity inferior defect with some lateral involvement of the mild defect as well. 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 It also suggests a large area of mild inferolateral ischemia. Images were reviewed using [employer]. Wall Motion Normal left ventricular wall motion. Nuclear Conclusion ECG Findings: non-diagnostic Clinical Findings: non-diagnostic Nuclear Findings: positive for ischemia Exercise Capacity: not assessed Left Ventricular Function: normal Risk Study: high This study suggests that there is an old anteroapical infarct with septal involvement. Additionally there is a large area of mild inferolateral ischemia. <Conclusion> Normal hemodynamic response to pharmacologic stress. Clinical response nondiagnostic. EKG response nondiagnostic due to heart rate there was an echo to exclude ischemia. <ELECTRONICALLY SIGNED> By: Miguel Linares MD, FACC 08/14/21 162 [id number] 19 Miguel Linares MD, FACC /INF
== END ==
LOC: M.NUC 06-29 12:21
PROVIDERS: ATTEND Registered Nurse
DX: I25.9 Chronic ischemic heart disease, unspecified (principal); I21.4 Non-ST elevation (NSTEMI) myocardial infarction